=== PATIENT | female | born 1940 | race Caucasian/White ===

== ENCOUNTER 2017-07-23 19:43 | Emergency (ER) | payer MEDICARE, BC ==
[~2017-07-23] VITALS: Ht 157.5 cm; Wt 75.0 kg
[2017-07-23 19:51] VITALS: TEMP 97.1
[2017-07-23] MEDS ORDERED: ZOCOR 40MG40 MG PO (20:37)
[2017-07-23] MEDS ORDERED: ZANTAC 150MG T150 MG PO (20:37)
[2017-07-23] MEDS ORDERED: LEVEMIR FLEX100 U/ML SQ (20:37)
[2017-07-23] MEDS ORDERED: PRINIVIL20 MG PO (20:38)
[2017-07-23 22:18] VITALS: BP 156/82; PULSE 82
== END 2017-07-23 22:35 | disposition home or self-care (01) ==
LOC: COL.ER 19:43
DX: S02.2XXA Fracture of nasal bones, initial encounter for closed fracture (principal); S01.511A Laceration without foreign body of lip, initial encounter; Z79.4 Long term (current) use of insulin; W01.0XXA Fall on same level from slipping, tripping and stumbling without subsequent striking against object, initial encounter; Y92.480 Sidewalk as the place of occurrence of the external cause